=== PATIENT | female | born 1985 | race Hispanic/Latino ===

== ENCOUNTER 2017-05-05 07:56 | Day surgery (SDC) | payer OTHER ==
[~2017-05-05] VITALS: Ht 150.4 cm; Wt 56.5 kg
[2017-05-05] VITALS (8 sets, daily range): BP systolic 103–109; BP diastolic 45–63; PULSE 63–78; RESP 14–17; O2SAT 96–100
[2017-05-05] MEDS: Lactated Ringer's 1,000 ML IV SCH ×2 (05:32→11:13)
[2017-05-05] MEDS ORDERED: Ondansetron 2 mg/mL 2 mL Inj ONE (07:57)
[2017-05-05] MEDS ORDERED: fentaNYL-PF 50 mCg/mL 2 mL Inj ONE (07:57)
[2017-05-05] MEDS ORDERED: Propofol 10,000 mCg/mL 20 mL Inj ONE (07:57)
[2017-05-05] MEDS ORDERED: EPHEDrine/NS 5 mg/mL 5 mL Syringe ONE (07:57)
[2017-05-05] MEDS ORDERED: Dexamethasone 4 mg/mL Inj ONE (07:57)
[2017-05-05] MEDS ORDERED: Lactated Ringer's 1,000 ML IV SCH (10:33)
[2017-05-05] MEDS ORDERED: Lactated Ringer's 500 ML IV PRN (10:33)
--- NOTE | 2017-05-05 10:33 | PCM.HPANE ---
Patient Data Date of Service: May 05, 2017 (0933) Surgeon Admitting Provider: Attending Provider:Morris Broderick MD Primary Care Physician:Dania Mahajan MD Other Provider:Marlena Randall Anesthesia Reason for Visit Right Axillary Accessory Breast Tissue Ht/WT & BMI Height (Feet): 4 Height (Inches): 11.20 Weight (Kilograms): 56.5 Body Mass Index 25.00 Allergies Coded Allergies: Pork (Verified Allergy, Unknown, 05/31/06) No Known Allergies (Verified , 05/03/06) Past Anesthesia History Anesthesia History: Denies:: Abnormal Airway, Anesthesia Reactions, Difficult Intubation, Fam Anesthesia Reaction, Fam Malignant Hypertherm, Malignant Hyperthermia Diabetes History Hx Diabetes?: No MRSA MRSA: No Medications Hypertension Medication: No Home Meds Incl Beta Irene: No No Active Prescriptions or Reported Meds History History of ENT Problems?: No HEENT History: Denies:: Abnormal Airway Cataracts Difficult Intubation Dysphagia Glaucoma Hearing Problem Sinus Problem TMJ Denture Type: None Teeth Condition: Within Normal Limits Hx of Heart Problems?: No Cardiovascular History: Denies:: AICD Abdominal Aortic Aneurism Cardiac Surgery Chest Pain Congestive Heart Failure Coronary Artery Disease Edema Heart Murmur Hypertension Irregular Heartbeat Pacemaker Peripheral Vascular Rheumatic Fever Hx of Respiratory Problem?: No Respiratory History: Denies:: Asthma COPD Emphysema Oxygen Administration Pneumonia Tuberculosis Use of C-PAP Machine Use of Inhalers / NEBS Hx Neurologic Problems?: No Neurological History: Denies:: Alzheimer's Disease CVA Headaches Multiple Sclerosis Parkinson's Disease Seizures Hx of GI Problems?: No Hx of Problems?: No Genitourinary History: Denies:: Kidney Stones Urinary Tract Infection Female Hx: Positive for:: Problems with Breasts? (right breast axillary accessory tissue current admission problem) Denies:: Currently Skin History: Denies:: History Skin Disorders? Pressure Ulcers Hx Musculoskeletal Problems?: No Musculoskeletal History: Denies:: Back Injury Fibromyalgia Joint Replacement Musculoskeletal Trauma Myasthenia Gravis Osteoarthritis Hx of Psycho/Social Problems?: No Psycho Social History: Denies:: Anxiety Hx Depression Hx Surgeries?: Yes (TUBAL LIGATION,OVARIAN CYST) Hx Any Other Health Problems?: Yes Other History: Denies:: Cancer Thyroid Disease History Blood Transfusions: Positive for:: Accept Blood Products? Denies:: Blood Transfusions Hx Diabetes: No Hx Alcohol Use: NoHx Substance Use: NoHave You Smoked inLast 12 mo: No Stop/Bang S-Snoring: Do You Snore Loudly: No T-Tired: feel tired, fatigued: No O-Obsered: Observed not breath: No P-Blood Pressure: treated: No B- Body Mass Index > 35 kg/m2: No A- Age over 50: No N- Neck Large Circumference: No G- Gender Male: No AWAIS Total Score: 0 AWAIS Risk Assessment: Low Risk, <3 Yes Risk Assessment Category Category 1A: Patient has history of documented sleep apnea, and HAS NOT received any narcotic, sedative or anesthesia administration during this stay. Category 1B: Patient has history of documented sleep apnea, and HAS received any narcotic , sedative or anesthesia administration during this stay Category 2: Patient has SUSPECTED Obstructive Sleep Apnea, and HAS received any narcotic , sedative or anesthesia administration during this stay. Category 3: Patient has SUSPECTED Obstructive Sleep Apnea and HAS NOT received narcotic, sedative or anesthesia administration during this stay. Category 4: Outpatient in Procedural Areas with known sleep apnea or who screen positive for High Risk via the STOP/BANG questionnaire. Exam Exam Vital Signs Vital Signs Date Time Temp Pulse Resp B/P Pulse Ox O2 Delivery O2 Flow Rate FiO2 05/05/17 08:19 35.9 63 16 103/54 100 Room Air General Appearance: Alert, Oriented X3, Cooperative HEENT/AIRWAY: MP 1 Lungs: Clear to Auscultation Heart: Exam Unremarkable Meds/Labs/Diagnostics Admission Meds Current Medications Lactated Ringer's (Lr) 1,000 ml @ 120 mls/hr Q8H20M IV Last administered on t 05:32; Start 05/05/17 at 05:00; Stop 05/05/17 at 13:19 Plan Impression Patient chart reviewed, patient interviewed and anesthestic plan with risks, benefits, and alternatives discussed, and informed consent obtained. NPO per Anesth. Guidelines: Yes ASA Physical Status: ASA1 Normal Healthy Anesthetic Plan: GA Bene/Risks/Altern/Consents: Yes HP Complete Prior to Induction: Yes Liban Arriaga MD May 05, 2017 10:33
[2017-05-05] MEDS ORDERED: MetoCLOpramide 5 mg/mL 2 mL Inj IVPUSH PRN (10:35)
[2017-05-05] MEDS ORDERED: Dexamethasone 4 mg/mL Inj IVPUSH PRN (10:35)
[2017-05-05] MEDS ORDERED: Ondansetron 2 mg/mL 2 mL Inj IVPUSH PRN (10:35)
[2017-05-05] MEDS ORDERED: Phenylephrine 10,000 mCg/mL Inj IVPUSH PRN (10:35)
[2017-05-05] MEDS ORDERED: fentaNYL-PF 50 mCg/mL 2 mL Inj IVPUSH PRN (10:35)
[2017-05-05] MEDS ORDERED: HYDROmorphone 1 mg/mL Inj IVPUSH PRN (10:35)
[2017-05-05] MEDS ORDERED: EPHEDrine Sulfate 50 mg/mL Inj IVPUSH PRN (10:35)
[2017-05-05] MEDS ORDERED: Bupivacaine-MPF 0.25% 30 mL Inj INFILTRATE ONE (10:46)
--- NOTE | 2017-05-05 12:07 | PCM.SURGPO ---
Immediate Operative Note Date of Surgery: May 05, 2017 Pre Operative Diagnosis Right Axillary Accessory Breast Tissue Post Operative Diagnosis Right Axillary Accessory Breast Tissue Procedure Resection of Right Axillary Accessory Breast Tissue Surgeon and Stitcher Hand Surgeon: Morris Broderick MD Assistants: Willi Perry MD Findings Good hemostasis Complications There were no periprocedural complications identified. Surgical Specimen Removed: Yes Specimen sent to Pathology: Yes Anesthetic Administered: GA Grafts, Implants: None Output, Estimated Blood Loss: 1 Blood Admin during surgery: No Attending Statement Radio Engineer listed was medically necessary for the successful completion of the case Morris Broderick MD May 05, 2017 12:07
--- NOTE | 2017-05-05 12:09 | PCM.ANEP1 ---
Post Anesthesia PACU Phase 1 Assessment Vital Signs 90, 100%, 36.6, 12, 109/45 Vital Signs Date Time Temp Pulse Resp B/P Pulse Ox O2 Delivery O2 Flow Rate FiO2 05/05/17 08:19 35.9 63 16 103/54 100 Room Air Anesthetic Administered: GA Level of Alertness: Awake, talking WITT's with Equal Strength: Yes Pain: No Pain Scale Score: 0 Nausea or Vomiting: No CV Function & Hydration Stable: Yes Airway Device: none Lungs: Clear to Auscultation Dermatome Level: Full Sensation Summary uneventful GA PACU Phase 2 Assessment Complications: No Follow up Care: No Patient Instructions Provided: N/A Liban Arriaga MD May 05, 2017 12:09
[2017-05-05] MEDS ORDERED: oxyCODONE-Acetamin 5-325 mg Tablet PO PRN (12:15)
--- NOTE | 2017-05-05 12:18 | PCM.DISURG ---
Surgical Discharge Instruction Date of Service May 05, 2017 Dates of Hospitalization Date of Hospital Admission Providers Admitting Physician: Primary Care Physician: Dania Mahajan MD Attending Physician: Morris Broderick MD Discharge Diagnosis Post Operative diagnosis Right Axillary Accessory Breast Tissue Diet Discharge Diet: No restrictions Activity Discharge Activity-General: Activity as pain allows, No driving while taking narcotic Dressing and Incisional Care Dressing Instructions: Liquid skin glue will peel off starting in several days Hygiene: May shower, DO NOT soak incision under water, NO bathtub, hot tub or whirlpool Additional Instructions Discharge Instructions Follow up in surgery clinic in 1-3 weeks. Call at any time with questions or concerns. Follow Up Plan Call your provider for: Fever, Chills, Wound redness, Discharge @ incision, pus discharge Willi Perry MD May 05, 2017 12:18
--- NOTE | 2017-05-05 13:29 | OP ---
[address] [address] OPERATIVE REPORT PATIENT: RASHAWN ESTES : 1985 MR#: [id number] ADMIT: 05/05/2017 JOB ID: [id number] DATE OF SURGERY: 05/05/2017 PREOPERATIVE DIAGNOSIS(ES): Right axillary accessory breast tissue. POSTOPERATIVE DIAGNOSIS(ES): Right axillary accessory breast tissue. PROCEDURE PERFORMED: Excision of right axillary accessory breast tissue. SURGEON: Morris Broderick M.D. LOFT PATTERNMAKER: COMPLICATIONS: None. CONDITION OF THE PATIENT: Stable. INDICATIONS: The patient is a 32-year-old lady who noticed swelling and drainage from her right axilla during her pregnancies and . She was seen by a surgeon when she lived in [place] who offered a resection but she did not follow through. She continued to have worsening swelling and pain around her periods now and she presented to me after an ultrasound for surgical consultation. After discussing the risks, benefits, and alternatives, she is here today for a resection of the axillary breast tissue. PROCEDURE DETAILS: She was placed in the supine position and underwent smooth induction of general anesthesia, and right axilla was prepped and draped in the usual sterile fashion. Surgical time-out was undertaken using safety checklist, and all were in agreement. I began by making an elliptical incision around the axillary nipple and raised and flaps circumferentially to encompass the breast tissue. After getting to the pectoralis superiorly and to the chest wall medially, I this tissue from the underlying axillary lymph nodes with a combination of blunt and sharp dissection with good hemostasis. After detaching the tissue completely from the axilla and the skin flaps and the muscles around, we ensured hemostasis, sent the specimen off and closed the wound in layers of 3-0 Vicryl followed by 4-0 Monocryl. Dermabond was applied as a dressing. The patient was recovered from anesthesia and was taken to the recovery room in stable condition.
--- NOTE | 2017-05-07 15:37 | PATH ---
SURGICAL PATHOLOGY Attending Physician:Morris Broderick MD CASE STATUS: Signed Out PATIENT NAME: RASHAWN ESTES PID: [id number] : 1985 DATE COLLECTED:05/05/2017 23:00 SPECIMEN: Skin, biopsy CLINICAL HISTORY: RIGHT AXILLARY ACCESSORY BREAST TISSUE 1). RIGHT AXILLARY ACCESSORY BREAST TISSUE FINAL DIAGNOSIS: 1.RIGHT AXILLARY ACCESSORY BREAST TISSUE: SKIN AND SUBCUTANEOUS TISSUE WITH BENIGN MAMMARY GLANDULAR TISSUE, CONSISTENT WITH ACCESSORY BREAST TISSUE. NO ATYPIA OR NEOPLASIA. ICD10 Q83.1 GROSS DESCRIPTION: The specimen is received in formalin, labeled with the patient's name, sublabeled as right axillary accessory breast tissue, and consists of an unoriented piece of adipose tissue (6.3 x 2.6 x 2.5 cm) partially covered by an ellipse of skin (4.4 x 1.7 cm). The adipose tissue is tang-yellow lobular and homogenous. The skin is brown smooth and shiny. No nodules, masses or lesions are identified. Ink code: black-resection margin. Section code: (A-I) adipose tissue with skin, serially sectioned, every other slice submitted. 05/06/17 JM MICRO DESCRIPTION: See diagnosis. ICD-9 CODES: CPT CODES: 1: 97223 Electronically Signed Out Kari Dickinson MD [facility] [address], [place] [address] Technical component performed at [facility], [address] [place] [address] Ave[address], [place], [address]
== END 2017-05-05 23:59 | disposition home or self-care (01) ==
LOC: SAS 07:56
PROVIDERS: ATTEND Student in an Organized Health Care Education/Training Program
DX: Q83.1 Accessory breast (principal)
CPT/HCPCS: 19120; J1100; J2250; J2405; J3010; J7120